=== PATIENT | female | born 1975 | race Caucasian/White ===

== ENCOUNTER 2021-04-24 11:24 | Emergency (ER) | payer MEDICAID ==
[2021-04-24 11:48] VITALS: BP 144/77
--- NOTE | 2021-04-24 12:20 | ED Physician Documentation ---
PD HPI LOWER EXT INJURY - Stated complaint Stated Complaint: RIGHT HEEL PX - Chief complaint Chief Complaint: Ext Problem - History obtained from History obtained from: Patient - Additional information Additional information: 45-year-old woman has been having pain of her calcaneus for the last 2 months or so. She thinks she may have rolled her ankle at the outset. Since then it has been progressive. The worst of the pain is at the posterior and sides of the calcaneus, not the anterior calcaneus or plantar fascia. She has tried stretching it, heat, elevation, none of this is helpful. There is no possibility of . Review of Systems Constitutional: reports: Reviewed and negative Eyes: reports: Reviewed and negative Ears: reports: Reviewed and negative Nose: reports: Reviewed and negative Throat: reports: Reviewed and negative PD PAST MEDICAL HISTORY - Allergies Allergies/Adverse Reactions: Allergies Allergy/AdvReac Type Severity Reaction Status Date / Time amoxicillin AdvReac Hives Verified 04/24/21 11:48 ampicillin AdvReac Hives Verified 04/24/21 11:48 Penicillins AdvReac Hives Verified 04/24/21 11:48 PD ED PE NORMAL - Vitals Vital signs reviewed: Yes - General General: Alert and oriented X 3, No acute distress - Extremities Extremities: Other (Tender at the posterior and sides of the calcaneus without tenderness at the anterior calcaneus nor the plantar fascia. Dorsiflexion of the foot and palpation and stretching of the Achilles is not painful.) - Neuro Neuro: Alert and oriented X 3, Normal speech Results - Vitals Vitals: Vital Signs - 24 hr 04/24/21 11:45 Temperature 37.4 C Heart Rate 76 Respiratory 16 Rate Blood Pressure 144/77 H O2 Saturation 98 Oxygen O2 Source Room air PD MEDICAL DECISION MAKING - ED course ED course: -year-old woman with progressive calcaneal pain that is not consistent with plantar fasciitis. X-ray of the right calcaneus was negative for fractures or other pathology. Seems most likely on a tendinitis of the Achilles insertion but placed in a boot pending podiatric follow-up. Departure - Departure Disposition: 01 Home, Self Care Clinical Impression: Right foot pain Condition: Good Record reviewed to determine appropriate education?: Yes Instructions: ED RICE Follow-Up: Lin Paulino DPM [Provider Admit Priv/Credential] - Tiessen,Gianfranco R, DPM [Physician No Access] - Comments: As discussed, this seems most consistent with pain at the insertion of the Achilles on the calcaneus or some other tendinitis. The x-ray was negative. Recommend you take an [id number] anti-inflammatories such as Motrin or Aleve and follow-up with podiatry, to possible folks are on this form. Discharge Date/Time: 04/24/21 13:35
--- NOTE | 2021-04-24 12:59 | XRAY Report ---
PROCEDURE: Calcaneus RT INDICATIONS: calcaneus pain TECHNIQUE: Two views of the calcaneus were acquired. COMPARISON: None FINDINGS: Bones: No fractures or dislocations. No suspicious bony lesions. Small calcaneal bone spurs. Soft tissues: No suspicious calcifications. Achilles tendon appears normal. IMPRESSION: No fracture. No acute osseous lesion. If there are persistent symptoms or continued clinical concern for pathology, then repeat plain film radiographs (7-10 days) or advanced imaging (CT, MR, bone scan) should be considered for further evaluation. Reviewed by: Rosemarie Moncada MD, PhD on 04/24/2021 12:58 PM PDT Approved by: Rosemarie Moncada MD, PhD on 04/24/2021 12:58 PM PDT Station ID: [id number]
== END 2021-04-24 13:35 | disposition home or self-care (01) ==
LOC: ED 11:24
DX: M79.671 Pain in right foot (principal)
CPT/HCPCS: 99282; 99283

== ENCOUNTER 2021-11-09 22:54 | Emergency (ER) | payer MEDICAID ==
[2021-11-09 23:38] LABS: BASOPHILS % (AUTO) 0.2 %; EOSINOPHILS # (AUTO) 0.1 10^3/uL (0.0-0.7); EOSINOPHILS % (AUTO) 0.6 %; HCT - HEMATOCRIT 42.5 % (37.0-47.0); HGB - HEMOGLOBIN 14.5 g/dL (12.0-16.0); LYMPHOCYTES # (AUTO) 3.2 10^3/uL (1.5-3.5); MEAN CORPUSCULAR HEMOGLOBIN 30.9 pg (27.0-31.0); MEAN CORPUSCULAR HGB CONC 34.1 g/dL (32.0-36.0); MEAN CORPUSCULAR VOLUME 90.6 fL (81.0-99.0); MEAN PLATELET VOLUME 7.9 fL (7.9-10.8); MONOCYTES # (AUTO) 0.5 10^3/uL (0.0-1.0); MONOCYTES % (AUTO) 5.6 %; NEUTROPHILS # (AUTO) 5.6 10^3/uL (1.5-6.6); NEUTROPHILS % (AUTO) 59.3 %; PLT - PLATELET COUNT 290 10^3/uL (130-450); RED BLOOD COUNT 4.69 10^6/uL (4.20-5.40); RED CELL DISTRIBUTION WIDTH 12.7 % (12.0-15.0); WHITE BLOOD COUNT 9.5 x10^3/uL (4.8-10.8)
[2021-11-09 23:52] LABS: ALBUMIN 3.9 g/dL (3.2-5.5); ALBUMIN/GLOBULIN RATIO 1.1 (1.0-2.2); BILIRUBIN,TOTAL 0.7 mg/dL (0.2-1.0); CREATININE 0.8 mg/dL (0.4-1.0); POTASSIUM 3.6 mmol/L (3.5-5.0); TOTAL PROTEIN 7.6 g/dL (6.7-8.2)
[2021-11-10 04:41] VITALS: BP 162/82
--- NOTE | 2021-11-10 08:15 | XRAY Report ---
PROCEDURE: Chest 2 View X-Ray INDICATIONS: chest pain TECHNIQUE: 2 view(s) of the chest. COMPARISON: None. FINDINGS: Surgical changes and devices: None. Lungs and pleura: No pleural effusions or pneumothorax. Lungs are clear. Mediastinum: Mediastinal contours are normal. Heart size is normal. Bones and chest wall: No suspicious bony abnormalities. Soft tissues appear unremarkable. IMPRESSION: No acute cardiopulmonary disease process. Reviewed by: Rosemarie Moncada MD, PhD on 11/10/2021 8:14 AM PDT Approved by: Rosemarie Moncada MD, PhD on 11/10/2021 8:14 AM PDT Station ID: [id number]
--- NOTE | 2021-11-13 00:10 | ED Physician Documentation ---
PD HPI CHEST PAIN - Stated complaint Stated Complaint: CP/LOW HEART RATE/NAUSEA/SOA/HEADACHE/INDEGESTION - Chief complaint Chief Complaint: Cardiac - History obtained from History obtained from: Patient - History of Present Illness Timing - onset: Enter time (17:00), Today Timing - details: Gradual onset Pain level now: 3 Quality: Pain Location: Substernal Radiation: Other (no radiation) Improved by: Other (no ameliorating factors) Worsened by: Other (no exacerbating factors) Similar symptoms before: Has not had sx before Recently seen: Not recently seen - Additional information Additional information: patient took home COVID test 5 days ago with (+) result. Presents to ED at this time c/o midline chest pain since 5 PM today without radiation, exacerbating or ameliorating factors. Occasional mild dyspnea, minimal cough. Denies fever. Review of Systems Constitutional: reports: Reviewed and negative Nose: reports: Reviewed and negative Throat: denies: Sore throat Cardiac: reports: Chest pain / pressure. denies: Palpitations, Pedal edema, Calf pain Respiratory: reports: Dyspnea (mild, intermittent), Cough (minimal, occasional) Musculoskeletal: denies: Extremity swelling PD PAST MEDICAL HISTORY - Past Medical History Past Medical History: Yes - Past Surgical History Past Surgical History: No - Present Medications Home Medications: Ambulatory Orders Medication Instructions Recorded Confirmed No Known Home Medications 11/10/21 11/10/21 - Allergies Allergies/Adverse Reactions: Allergies Allergy/AdvReac Type Severity Reaction Status Date / Time amoxicillin AdvReac Hives Verified 11/10/21 02:46 ampicillin AdvReac Hives Verified 11/10/21 02:46 Penicillins AdvReac Hives Verified 11/10/21 02:46 - Social History Does the pt smoke?: No Smoking Status: Never smoker PD ED PE NORMAL - Vitals Vital signs reviewed: Yes - General General: Alert and oriented X 3, No acute distress, Well developed/nourished - HEENT HEENT: Moist mucous membranes - Neck Neck: Supple, no meningeal sign - Cardiac Cardiac: RRR, No murmur - Respiratory Respiratory: No respiratory distress, Clear bilaterally - Abdomen Abdomen: Soft, Non tender - Extremities Extremities: No edema Results - Vitals Vitals: Oxygen O2 Source Room air - EKG (time done) No standard instances Rate: Rate (enter#) (60) Rhythm: NSR Central: Normal Intervals: Normal MA QRS: Normal Ischemia: Normal ST segments - Labs Labs: Laboratory Tests 11/09/21 11/09/21 11/09/21 23:34 23:34 23:34 WBC 9.5 RBC 4.69 Hgb 14.5 Hct 42.5 MCV 90.6 MCH 30.9 MCHC 34.1 RDW 12.7 Plt Count 290 MPV 7.9 Neut # (Auto) 5.6 Lymph # (Auto) 3.2 Coal # (Auto) 0.5 Eos # (Auto) 0.1 Baso # (Auto) 0.0 Absolute Nucleated RBC 0.00 Nucleated RBC % 0.0 Sodium 137 Potassium 3.6 Chloride 100 L Carbon Dioxide 28 Anion Gap 9.0 BUN 12 Creatinine 0.8 Estimated GFR (MDRD) 78 L Glucose 108 H Calcium 9.0 Total Bilirubin 0.7 AST 14 ALT 15 Alkaline Phosphatase 58 Troponin I High Sens < 2.3 L Total Protein 7.6 Albumin 3.9 Globulin 3.7 Albumin/Globulin Ratio 1.1 Lipase 35 - Rads (name of study) chest xray Radiology: Prelim report reviewed, See rad report PD MEDICAL DECISION MAKING - ED course Complexity details: reviewed results, re-evaluated patient, considered differential, d/w patient Departure - Departure Disposition: 01 Home, Self Care Clinical Impression: Chest pain Qualifiers: Chest pain type: unspecified Qualified Code(s): R07.9 - Chest pain, unspecified Condition: Good Instructions: ED Chest Pain Atypical Unkn Cause, ED Hypertension Poss Forms: Activity restrictions Discharge Date/Time: 11/10/21 05:23
== END 2021-11-10 05:23 | disposition home or self-care (01) ==
LOC: ED 22:54
DX: R07.9 Chest pain, unspecified (principal)
CPT/HCPCS: 36415; 80053; 83690; 84484; 85025; 93005; 99284